=== PATIENT | male | born 1955 | race Caucasian/White ===

== ENCOUNTER → 2016-05-21 | Outpatient (CLI) | payer OTHER | LOC: FIMAGING 17:22 | PROVIDERS: ATTEND Internal Medicine | DX: T18.9XXD Foreign body of alimentary tract, part unspecified, subsequent encounter (principal); R91.8 Other nonspecific abnormal finding of lung field ==

== ENCOUNTER → 2016-06-11 | Outpatient (CLI) | payer OTHER | LOC: FIMAGING 11:48 | PROVIDERS: ATTEND Internal Medicine | DX: R91.1 Solitary pulmonary nodule (principal) ==

== ENCOUNTER 2016-11-09 10:20 | Day surgery (SDC) | payer OTHER ==
[2016-11-09] MEDS ORDERED: LR 1,000 ML IV ONE (10:58)
--- NOTE | 2016-11-09 11:51 | PDANEPAE ---
ANE History of Present Illness EGD ANE Past Medical History - Cardiovascular History Hx Hypertension: No Hx Arrhythmias: No Hx Chest Pain: No Hx Coronary Artery / Peripheral Vascular Disease: No Hx CHF / Valvular Disease: No Hx Palpitations: No - Pulmonary History Hx COPD: No Hx Asthma/Reactive Airway Disease: No Hx Recent Upper Respiratory Infection: No Hx Oxygen in Use at Home: No Hx Sleep Apnea: No Sleep Apnea Screening Result - Last Documented: Negative - Neurologic History Hx Cerebrovascular Accident: No Hx Seizures: No Hx Dementia: No - Endocrine History Hx Diabetes: No Hypothyroid: No Hyperthyroid: No - Renal History Hx Renal Disorders: No - Liver History Hx Hepatic Disorders: No - Neurological & Psychiatric Hx Hx Neurological and Psychiatric Disorders: No - Cancer History Hx Cancer: No - Congenital Disorder History Hx Congenital Disorders: No - GI History Hx Gastrointestinal Disorders: Yes Gastrointestinal History Comment: GERD - Chronic Pain History Chronic Pain: No - Surgical History Prior Surgeries: 2015 : TOOTH IMPLANT. 2014 : SUPERFICIAL VENOUS THROMBOSIS. 2005 : BILATERAL CHEILECTOMY. 1999 : LEFT KNEE MICROFRACTURE. 1997 : VARICOSE VEIN STRIPPING LEFT LEG ANE Review of Systems - Exercise capacity METS (RN): 6 METS ANE Patient History - Allergies Allergies/Adverse Reactions: Penicillins Allergy (Verified 11/09/16 10:51) - Home Medications Home Medications: ASPIRIN 10/30/16 [Last Taken 1 Week Ago] Crestor 5 mg 10/30/16 [Last Taken 11/08/16 23:00] Dexedrine 2.5 mg 10/30/16 [Last Taken 1 Day Ago] Flovent Hfa 10/30/16 [Last Taken 11/08/16 23:00] Herbals/Supplements -Info Only 10/30/16 [Last Taken 2 Days Ago] PRILOSEC 20 mg 10/30/16 [Last Taken 1 Day Ago] VITAMIN D 10/30/16 [Last Taken 1 Week Ago] Zolpidem Tartrate 2.5 mg 10/30/16 [Last Taken 3 Days Ago] - NPO status NPO Since - Liquids (Date): 11/08/16 NPO Since - Liquids (Time): 22:00 NPO Since - Solids (Date): 11/08/16 NPO Since - Solids (Time): 22:00 - Anes Hx Anes Hx: no prior problems - Smoking Hx Smoking Status: Never smoked - Alcohol Use Alcohol Use: Occasionally - Family Anes Hx Family Anes Hx: none Family Hx Anesthesia Complications: N/A ANE Labs/Vital Signs - Vital Signs Blood Pressure: 154/83 Heart Rate: 96 Respiratory Rate: 12 O2 Sat (%): 97 Height: 180.34 cm Weight: 86.183 kg ANE Physical Exam - Airway Mallampati Score: Class 1 Mouth exam: normal dental/mouth exam - Pulmonary Pulmonary: no respiratory distress - Cardiovascular Cardiovascular: regular rate and rhythym - ASA Status ASA Status: II ANE Anesthesia Plan Anesthesia Plan: GA with mask
[2016-11-09] MEDS ORDERED: LIDOCAINE 2% 5 ML SDV ONE (12:00)
[2016-11-09] MEDS ORDERED: PROPOFOL 200 MG/20 ML VIAL ONE ×2 (12:00)
--- NOTE | 2016-11-09 12:00 | PDGENHP ---
History & Physical Chief Complaint: dysphagia History of Present Illness: 61 year old male presents for evaluation of dysphagia, GERD, and epigsatric pain. Pertinent Past, Social, Family History: FaMHx: Esophageal cancer Relevant Physical Exam: HEENT: anicteric. CV: RRR. Lungs: CTAB No w/r/r. Abd : soft, nt, + BS. No guarding or rebound Cardiorespiratory Assessment: ASA 2. [place]: 1
[2016-11-09] MEDS ORDERED: NALOXONE HCL 0.4 MG/ML INJ IVP PRN (12:12)
[2016-11-09] MEDS ORDERED: ONDANSETRON 4 MG/2 ML VIAL IVP PRN (12:12)
[2016-11-09] MEDS ORDERED: fentaNYL 100 MCG/2 ML INJ IVP PRN (12:12)
[2016-11-09] MEDS ORDERED: INDOMETHACIN 50 MG SUPP PR PRN (12:18)
--- NOTE | 2016-11-09 12:18 | POSTOPPROG ---
Post Op Note Date of Operation: 11/09/16 Surgeon: Elian Damian Anesthesia: IV Sedation Pre-op Diagnosis: dysphagia, dyspepsia Post-op Diagnosis: gastritis, ireg Z-line Indication: dysphagia, epigsatic pain Procedure: EGD with dil, bx Findings: gastritis, hh Inf/Abcess present in the surg proc area at time of surgery?: No EBL: Minimal Specimen(s): gastritis irreg Zline mid esophagus duodenum for c.s
[2016-11-09] MEDS ORDERED: NS 500 ML IV SCH (12:30)
[2016-11-09 12:31] VITALS: PULSE 68
[2016-11-09 12:41] VITALS: TEMP 96.8
--- NOTE | 2016-11-09 12:58 | GPN ---
[f rep st] PROCEDURE NOTE DATE OF PROCEDURE: 11/09/2016 PROCEDURE: Esophagogastroduodenoscopy with dilation, biopsy. INDICATION: Darvin is a 61-year-old male who presents for evaluation of heartburn, dysphagia, as well as epigastric abdominal pain. CONSENT: Risks, benefits, and alternatives of the procedure were discussed in great detail with the patient. Risks of infection, bleeding, perforation, and sedation were discussed. All questions answered and informed consent was obtained. MEDICATIONS: Propofol. Please see Anesthesiology record for details. ESTIMATED BLOOD LOSS: Insignificant. ESOPHAGOGASTRODOUDENOSCOPY EXAMINATION: The Olympus upper endoscope was introduced into the mouth and advanced to the esophagus. The proximal and mid esophagus was normal in appearance. The patient was noted to have an irregular Z-line and biopsies were taken. Biopsies were taken of the mid esophagus to rule out eosinophilic esophagitis. Empiric dilation was performed of the gastroesophageal junction with a [employer] 15-18 mm balloon at the end of the procedure. The balloon was pulled through the esophagus and no obvious stricture was noted. The stomach was entered and closely examined, including retroflexed views of the angularis, cardia, and fundus. A moderate-sized hiatal hernia was visualized. The mucosa in the antrum and the body of the stomach was erythematous in a patchy distribution. Biopsies taken. The duodenal bulb, and the 2nd portion of duodenum were normal in appearance. Biopsies taken to rule out celiac sprue. IMPRESSION: 1. Empiric dilation of the esophagus performed. 2. Biopsies taken to rule eosinophilic esophagitis. 3. Irregular Z-line, biopsies taken. 4. Hiatal hernia. 5. Gastritis, status post biopsies. 6. Biopsy to rule out celiac sprue. RECOMMENDATIONS: 1. Continue previous medications. 2. Advance to regular diet. 3. Await biopsy results. 4. Full-dose PPI therapy. 5. Follow up in the office in 4 weeks if any symptoms. Copy requested to: Primary Care Physician /[id number]/MODL MTDD
--- NOTE | 2016-11-09 13:37 | POSTANESTH ---
Post Anesthetic Evaluation Cardiovascular Status: Normal, Stable Respiratory Status: Normal, Stable Level of Consciousness/Mental Status: Can Participate in Eval Pain Control: Adequate, Prn Tx Ordered Nausea/Vomiting Control: Adequate, Prn Tx Ordered Complications Possibly Related to Anesthesia: None Noted
[2016-11-09 13:45] VITALS: BP 129/82; RESP 18; O2SAT 96
== END 2016-11-09 13:40 | disposition home or self-care (01) ==
LOC: FSGY 10:20
PROVIDERS: ATTEND Internal Medicine Gastroenterology
PROC: 0DB58ZX Excision of Esophagus, Via Natural or Artificial Opening Endoscopic, Diagnostic (ICD-10-PCS; principal; 2016-11-09 12:00)
PROC: 0DB98ZX Excision of Duodenum, Via Natural or Artificial Opening Endoscopic, Diagnostic (ICD-10-PCS; principal; 2016-11-09 12:00)
PROC: 0DB68ZX Excision of Stomach, Via Natural or Artificial Opening Endoscopic, Diagnostic (ICD-10-PCS; principal; 2016-11-09 12:00)
PROC: 0D748ZZ Dilation of Esophagogastric Junction, Via Natural or Artificial Opening Endoscopic (ICD-10-PCS; principal; 2016-11-09 12:00)
DX: K22.8 Other specified diseases of esophagus (principal); K29.70 Gastritis, unspecified, without bleeding; K44.9 Diaphragmatic hernia without obstruction or gangrene; R13.10 Dysphagia, unspecified; R12 Heartburn; K21.9 Gastro-esophageal reflux disease without esophagitis
CPT/HCPCS: 43239; 43249; C1726; J2704

== ENCOUNTER 2017-02-08 10:20 | Day surgery (SDC) | payer OTHER ==
[2017-02-08] MEDS ORDERED: LIDOCAINE 1% 2 ML INJ ID PRN (10:54)
[2017-02-08] MEDS ORDERED: LR 1,000 ML IV ONE (10:54)
[2017-02-08 11:20] VITALS: PULSE 58
--- NOTE | 2017-02-08 11:45 | PDANEPAE ---
ANE Past Medical History - Cardiovascular History Hx Hypertension: No Hx Arrhythmias: No Hx Chest Pain: No Hx Coronary Artery / Peripheral Vascular Disease: No Hx CHF / Valvular Disease: No Hx Palpitations: No - Pulmonary History Hx COPD: No Hx Asthma/Reactive Airway Disease: No Hx Recent Upper Respiratory Infection: No Hx Oxygen in Use at Home: No Hx Sleep Apnea: No Sleep Apnea Screening Result - Last Documented: Negative - Neurologic History Hx Cerebrovascular Accident: No Hx Seizures: No Hx Dementia: No - Endocrine History Hx Diabetes: No - Renal History Hx Renal Disorders: No - Liver History Hx Hepatic Disorders: No - Neurological & Psychiatric Hx Hx Neurological and Psychiatric Disorders: Yes Neurological / Psychiatric History Comment: ADD with rx - Cancer History Hx Cancer: No - Congenital Disorder History Hx Congenital Disorders: No - GI History Hx Gastrointestinal Disorders: Yes Gastrointestinal History Comment: GERD - Other Health History Other Health History: Varicose veins. cataracts - Chronic Pain History Chronic Pain: No - Surgical History Prior Surgeries: 2015 : TOOTH IMPLANT. 2014 : SUPERFICIAL VENOUS THROMBOSIS. 2005 : BILATERAL CHEILECTOMY. 1999 : LEFT KNEE MICROFRACTURE. 1997 : VARICOSE VEIN STRIPPING LEFT LEG ANE Review of Systems Review of Systems: - Exercise capacity METS (RN): 6 METS ANE Patient History - Allergies Allergies/Adverse Reactions: Penicillins Allergy (Verified 11/09/16 10:51) - Home Medications Home Medications: ASPIRIN 81 10/30/16 [Last Taken 02/05/17] Crestor 5 mg 10/30/16 [Last Taken 02/05/17] Dexedrine 2.5 mg 10/30/16 [Last Taken 02/06/17] Flovent Hfa PRN 10/30/16 [Last Taken 02/01/17] Herbals/Supplements -Info Only 10/30/16 [Last Taken 2 Days Ago ~11/07/16] PRILOSEC 20 mg DAILY 10/30/16 [Last Taken 02/08/17] VITAMIN D 10/30/16 [Last Taken 02/05/17] Zolpidem Tartrate 2.5 mg 10/30/16 [Last Taken 02/07/17] Gaviscon Liquid 02/05/17 [Last Taken 02/05/17] - NPO status NPO Since - Liquids (Date): 02/07/17 NPO Since - Liquids (Time): 22:00 NPO Since - Solids (Date): 02/07/17 NPO Since - Solids (Time): 08:00 - Smoking Hx Smoking Status: Never smoked Marijuana use: Yes - Family Anes Hx Family Hx Anesthesia Complications: N/A ANE Labs/Vital Signs - Vital Signs Blood Pressure: 150/88 Heart Rate: 58 Respiratory Rate: 16 O2 Sat (%): 97 Height: 180.34 cm Weight: 85.275 kg ANE Physical Exam - Airway Mallampati Score: Class 1 - ASA Status ASA Status: II ANE Anesthesia Plan Total IV Anesthesia: Yes
[2017-02-08] MEDS ORDERED: PROPOFOL/EMULSION 500 MG/50 ML BOTTLE IV ONE (11:47)
--- NOTE | 2017-02-08 11:54 | PDGENHP ---
History & Physical Chief Complaint: screening History of Present Illness: 61 year old male presents for screening Pertinent Past, Social, Family History: PMHx: HTN. SoHx: + alc. FaMHx: NO hx CRC or polyps( ?) Relevant Physical Exam: HEENT: anicteric. CV: RRR +s1s2. Lungs: CTAB. Abd: soft, nt, + bs Cardiorespiratory Assessment: ASA 2
[2017-02-08] MEDS ORDERED: INDOMETHACIN 50 MG SUPP PR PRN (12:17)
--- NOTE | 2017-02-08 12:23 | GIREPORT ---
Formerly [facility] Surgical Services - Endoscopy Department Patient Name: Darvin Zabala Procedure Date: 02/08/2017 11:50 AM Patient Type: Outpatient Attending MD/ ER Physician: Elian Damian MD Procedure: Colonoscopy Indications: Screening for colorectal malignant neoplasm Patient Profile: 61 kushal old male presents for screening colonoscopy. Providers: Elian Damian MD Medicines: Monitored Anesthesia Care Complications: No immediate complications. Estimated blood loss: Minimal. Description of Procedure: After obtaining informed consent, the scope was passed under direct vis ion. Throughout the procedure, the patient's blood pressure, pulse, and oxyg en saturations were monitored continuously. The Colonoscope with irrigatio n channel was introduced through the anus and advanced to the cecum, identified by appendiceal orifice and ileocecal valve. The colonoscopy was performed without difficulty. The patient tolerated the procedure well. The quality of the bowel preparation was good. The ileocecal valve, appendi ceal orifice, and rectum were photographed. Findings: The perianal and digital rectal examinations were normal. Pertinent negatives include no palpable rectal lesions. A 2 mm polyp was found in the ascending colon. The polyp was sessile. T he polyp was removed with a cold biopsy forceps. Resection and retrieval w ere complete. Estimated Blood Loss: Estimated blood loss was minimal. Post Op Diagnosis: - One 2 mm polyp in the ascending colon, removed with a cold biopsy for ceps. Resected and retrieved. Recommendation: - Discharge patient to home (with escort). - Resume previous diet. - Continue present medications. - Repeat colonoscopy in 5-10 years for surveillance (5 years if adenoma , 10 years otherwise). - Await pathology results. - Thank you for allowing me to particpate in the care of your patient. Attending Participation: I personally performed the entire procedure. Elian Damian MD Elian Damian MD 02/08/2017 12:22:57 PM This report has been signed electronicallyElian Damian MD Number of Addenda: 0 Note Initiated On: 02/08/2017 11:50 AM Total Procedure Duration Time 0 hours 15 minutes 18 seconds [email or web address]
[2017-02-08] MEDS ORDERED: NALOXONE HCL 0.4 MG/ML INJ IVP PRN (12:24)
[2017-02-08] MEDS ORDERED: ONDANSETRON 4 MG/2 ML VIAL IVP PRN (12:24)
[2017-02-08] MEDS ORDERED: fentaNYL 100 MCG/2 ML INJ IVP PRN (12:24)
[2017-02-08] MEDS ORDERED: LR 500 ML IV PRN (12:24)
[2017-02-08 12:29] VITALS: TEMP 97.7
[2017-02-08] MEDS ORDERED: NS 500 ML IV SCH (12:30)
[2017-02-08 12:55] VITALS: RESP 16
[2017-02-08 13:13] VITALS: BP 132/92; O2SAT 95
== END 2017-02-08 13:30 | disposition home or self-care (01) ==
LOC: FSGY 10:20
PROVIDERS: ATTEND Internal Medicine Gastroenterology
PROC: 0DBK8ZX Excision of Ascending Colon, Via Natural or Artificial Opening Endoscopic, Diagnostic (ICD-10-PCS; principal; 2017-02-08 11:45)
DX: D12.2 Benign neoplasm of ascending colon (principal); R13.10 Dysphagia, unspecified; K21.9 Gastro-esophageal reflux disease without esophagitis
CPT/HCPCS: J2704

== ENCOUNTER 2018-01-03 16:17 | Observation (INO) | payer OTHER ==
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
[2018-01-03 16:52] LABS: PLATELET COUNT 169 10^3/uL (150-400)
[2018-01-03] MEDS ORDERED: oxyCODONE IR 5 MG TAB PO PRN ×2 (18:09→20:12)
[2018-01-03] MEDS ORDERED: LORazepam 0.5 MG TAB PO PRN (18:09)
[2018-01-03] MEDS ORDERED: ONDANSETRON DISINTEGRATING 4 MG TAB PO PRN (18:09)
[2018-01-03] MEDS ORDERED: HYDROmorphone HCL 0.5 MG/0.5 ML SYR IVP PRN (18:09)
[2018-01-03] MEDS ORDERED: ONDANSETRON 4 MG/2 ML VIAL IVP PRN ×2 (18:09→20:12)
[2018-01-03] MEDS ORDERED: PROMETHAZINE HCL 25 MG/ML INJ IVP PRN ×2 (18:09→20:12)
[2018-01-03] MEDS ORDERED: ACETAMINOPHEN 325 MG TAB PO PRN (18:09)
[2018-01-03] MEDS ORDERED: HYDROCODONE/APAP 5/325 TAB PO PRN ×2 (18:09→20:12)
[2018-01-03] MEDS ORDERED: NS 1,000 ML IV SCH (18:15)
[2018-01-03] MEDS ORDERED: LR 1,000 ML IV ONE (18:18)
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
[2018-01-03] MEDS ORDERED: ONDANSETRON 4 MG/2 ML VIAL ONE (18:37)
[2018-01-03] MEDS ORDERED: DEXAMETHASONE 4 MG/ML VIAL ONE (18:37)
[2018-01-03] MEDS ORDERED: LIDOCAINE 2% 2 ML INJ ONE ×2 (18:37)
[2018-01-03] MEDS ORDERED: SUGAMMADEX SODIUM 200 MG/2 ML VIAL IVP ONE (18:37)
[2018-01-03] MEDS ORDERED: ROCURONIUM 50 MG/5 ML VIAL ONE (18:37)
[2018-01-03] MEDS ORDERED: fentaNYL 100 MCG/2 ML INJ ONE ×2 (18:39)
[2018-01-03] MEDS ORDERED: ROPIVACAINE HCL 20 MG/10 ML INJ EP ONE ×2 (18:39→20:33)
[2018-01-03] MEDS ORDERED: PROPOFOL 200 MG/20 ML VIAL ONE (18:41)
--- NOTE | 2018-01-03 18:56 | POSTANESTH ---
Post Anesthetic Evaluation Cardiovascular Status: Normal, Stable Respiratory Status: Normal, Stable Level of Consciousness/Mental Status: Can Participate in Eval, Alert and Oriented Pain Control: Adequate, Prn Tx Ordered Nausea/Vomiting Control: Adequate, Prn Tx Ordered Complications Possibly Related to Anesthesia: None Noted
[2018-01-03] MEDS ORDERED: MIDAZOLAM 2 MG/2 ML VIAL IVP ONE (18:57)
[2018-01-03] MEDS ORDERED: CEFAZOLIN 2 GM/DEXTROSE/100 ML BAG IV ONE (19:11)
[2018-01-03] MEDS ORDERED: ceFAZolin 2 GM/DEXTROSE 100 ML IV ONE (19:30)
[2018-01-03] MEDS ORDERED: HYDROmorphONE/DILAUDID 2 MG/ML INJ ONE (20:06)
[2018-01-03] MEDS ORDERED: NALOXONE HCL 0.4 MG/ML INJ IVP PRN (20:12)
[2018-01-03] MEDS ORDERED: LR 500 ML IV PRN (20:12)
[2018-01-03] MEDS ORDERED: fentaNYL 100 MCG/2 ML INJ IVP PRN (20:12)
[2018-01-03] MEDS ORDERED: LABETALOL HCL 5 MG/ML 20 ML MDV IVP PRN (20:12)
[2018-01-03] MEDS ORDERED: ALBUTEROL 3 ML DEYVIAL IH PRN (20:12)
[2018-01-03] MEDS ORDERED: ACETAMINOPHEN 500 MG TAB PO PRN ×2 (20:12→22:27)
[2018-01-03] MEDS ORDERED: DIAZEPAM 5 MG/ML 1 ML SYR IVP PRN (20:12)
[2018-01-03] MEDS ORDERED: HYDROmorphONE/DILAUDID 2 MG/ML INJ IVP PRN ×2 (20:12→21:12)
[2018-01-03] MEDS ORDERED: TEMAZEPAM 15 MG CAP PO PRN (21:12)
[2018-01-03] MEDS ORDERED: D5W 1/2 NS W/ 20 KCl/L 1,000 ML IV SCH (21:15)
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
[2018-01-03] MEDS ORDERED: MELATONIN 3 MG TAB PO PRN (22:39)
[2018-01-04] MEDS: OXYCODONE/APAP 5/325 TAB PO PRN ×3 (03:28→14:28)
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
[2018-01-04] MEDS ORDERED: MULTIVITAMINS 1 EACH TAB PO SCH (09:00)
[2018-01-04] MEDS ORDERED: CHOLECALCIFEROL VIT D3 1,000 UNITS TAB PO SCH (09:00)
[2018-01-04] MEDS ORDERED: ENOXAPARIN 40 MG/0.4 ML SYR SC SCH (09:00)
[2018-01-04] MEDS ORDERED: ASPIRIN EC 81 MG TAB PO SCH (09:00)
[2018-01-04] MEDS ORDERED: PANTOPRAZOLE SODIUM 40 MG TAB PO SCH (09:00)
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
[2018-01-04 11:43] VITALS: BP 116/85
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
--- NOTE | 2018-01-04 12:35 | ASMTLACE ---
LACE Length of stay for Answers: 2 days current admission Acuity / Level of Answers: Yes Care: Did the patient have an inpatient admission? Comorbidities - select Answers: Other Notes: GERD all that apply # of Emergency department Answers: 1-2 visits in the last 6 months Score: 7 Date Signed: 01/04/2018 12:06 PM Electronically Signed By:SCAR Harris
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
[2018-01-04] MEDS ORDERED: ROSUVASTATIN CALCIUM 10 MG TAB PO SCH (21:00)
== END 2018-01-04 14:30 | disposition home or self-care (01) ==
LOC: EDUNIT# → INTOOBSV 17:18 → F3N 18:05
PROVIDERS: ADMIT Internal Medicine; ATTEND Internal Medicine
PROC: 0QH606Z Insertion of Intramedullary Internal Fixation Device into Right Upper Femur, Open Approach (ICD-10-PCS; principal; 2018-01-03 18:45)
DX: S72.141A Displaced intertrochanteric fracture of right femur, initial encounter for closed fracture (principal); V18.0XXA Pedal cycle driver injured in noncollision transport accident in nontraffic accident, initial encounter; Y93.55 Activity, bike riding; Y92.828 Other wilderness area as the place of occurrence of the external cause; Y99.8 Other external cause status; K21.9 Gastro-esophageal reflux disease without esophagitis; I87.2 Venous insufficiency (chronic) (peripheral); M43.16 Spondylolisthesis, lumbar region; M47.816 Spondylosis without myelopathy or radiculopathy, lumbar region
CPT/HCPCS: 27245; 72192; 73502; 76001; 97110; 97161; 97165; 99285; G0378; C1713; J0690; J1100; J1170; J1650; J2250; J2405; J2704; J2795; J3010

== ENCOUNTER 2018-01-08 10:39 | Emergency (ER) | payer OTHER ==
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
[2018-01-08] MEDS ORDERED: NS 1,000 ML IV ONE (11:04)
[2018-01-08] MEDS ORDERED: IOPAMIDOL (ISOVUE 370) 100 ML BTL IV ONE (11:31)
[2018-01-08 12:44] VITALS: BP 148/90
== END 2018-01-08 12:39 | disposition home or self-care (01) ==
DX: R06.02 Shortness of breath (principal); E86.9 Volume depletion, unspecified; Z98.890 Other specified postprocedural states; Z86.79 Personal history of other diseases of the circulatory system
CPT/HCPCS: 82435-PO; 82565-PO; 82947-PO; 84132-PO; 84295-PO; 84520-PO; 85014-PO; Q9967